=== PATIENT | male | born 1990 | race Caucasian/White ===

== ENCOUNTER 2023-10-10 08:16 | Emergency (ER) | payer OTHER, MEDICAID, SELFPAY ==
[2023-10-10] VITALS (7 sets, daily range): BP systolic 143–174; BP diastolic 77–94; PULSE 91–101; RESP 13–22; TEMP 36.2; O2SAT 92–97; BMI 35.4
--- NOTE | 2023-10-10 08:25 | DI.RAD.S_ITS ---
PROCEDURE: XR CHEST 1V INDICATIONS: eval for PNA TECHNIQUE: One view of the chest was acquired. COMPARISON: None. FINDINGS: Surgical changes and devices: None. Lungs and pleura: Lungs are clear. No pleural effusions or pneumothorax. Mediastinum: Mediastinal contours appear normal. Heart size is normal. Bones and chest wall: No suspicious bony lesions. Overlying soft tissues appear unremarkable. IMPRESSION: No acute cardiopulmonary abnormality is seen. Dictated by: Mark Styles M.D. on 10/10/2023 at 9:04 Approved by: Mark Styles M.D. on 10/10/2023 at 9:04
--- NOTE | 2023-10-10 08:38 | ED.GENADULT ---
HPI - General Adult General Chief complaint: Shortness of Breath/Dyspnea Stated complaint: SOB, Cough, diff sleeping, back pain Time Seen by Provider: 10/10/23 08:24 Source: patient Mode of arrival: Ambulatory History of Present Illness HPI narrative: Patient is a 33-year-old male. Does occasionally smoke cigarettes. Is here for evaluation of several days of coughing and shortness of breath and back discomfort because of the coughing and difficulty sleeping. Did have vomiting a couple days ago unrelated to the cough but nothing currently. No fevers. His having sinus congestion. No abdominal pain or skin rashes. Related Data Allergies Allergy/AdvReac Type Severity Reaction Status Date / Time morphine Allergy Verified 10/10/23 08:26 Sulfa (Sulfonamide Allergy Verified 10/10/23 08:26 Antibiotics) Review of Systems Constitutional Constitutional: Reports system reviewed and no additional complaints, except as documented Cardiovascular Cardiovascular: Reports system reviewed and no additional complaints, except as documented Respiratory Respiratory: Reports system reviewed and no additional complaints, except as documented Gastrointestinal Gastrointestinal: Reports system reviewed and no additional complaints, except as documented Integumentary/Breasts Skin/Breast: Reports system reviewed and no additional complaints, except as documented Neurologic Neurologic: Reports system reviewed and no additional complaints, except as documented Hematologic/Lymphatic On Anticoagulants: No Patient History Social History Smoking Status: Current some day smoker Smoking Status: Current some day smoker tobacco type: cigarettes alcohol intake frequency: 0-2 drinks per day Substance Use Type: does not use Exam Initial Vital Signs Initial Vital Signs: Vital Signs Pulse Rate 100 H 10/10/23 08:23 Pulse Oximetry 97 10/10/23 08:23 Oxygen Delivery Method Room Air 10/10/23 08:23 Const General: cooperative, comfortable and No ill appearing HENMT Head: normal to inspection and normocephalic Resp Effort & Inspection: normal respiratory effort Auscultation: clear to auscultation bilaterally Cardio Rate: regular rate GI Inspection: normal to inspection Skin General: no rashes or lesions noted Neuro General: patient alert, patient awake and moves all extremities Extrem General: capillary refill normal Course Orders Ordered: ED Orders 10/10/23 08:25 XR chest 1V Stat 10/10/23 08:28 Basic Metabolic Panel Stat Complete Blood Count AUTO DIFF Stat 10/10/23 08:30 Covid-19 + FLU A/B + RSV - PCR Stat Vital Signs Vital signs: Vital Signs - 8 hr 10/10/23 08:23 10/10/23 08:24 10/10/23 08:24 Temperature Pulse Rate 100 H 101 H Respiratory Rate 15 Blood Pressure 174/94 H Pulse Oximetry 97 96 Oxygen Delivery Method Room Air Room Air 10/10/23 08:26 10/10/23 08:30 10/10/23 08:30 Temperature 97.2 F L Pulse Rate 101 H 95 H Respiratory Rate 22 13 Blood Pressure 174/94 H 155/92 H Pulse Oximetry 97 97 Oxygen Delivery Method Room Air Nasal Cannula 10/10/23 09:00 10/10/23 09:00 10/10/23 09:30 Temperature Pulse Rate 94 H Respiratory Rate 19 Blood Pressure 153/80 H 143/77 H Pulse Oximetry 93 Oxygen Delivery Method 10/10/23 09:30 Temperature Pulse Rate 91 H Respiratory Rate 19 Blood Pressure Pulse Oximetry 92 Oxygen Delivery Method Room Air Medical Decision Making Lab Data Lab results reviewed: Yes I reviewed the patient's lab results. 10/10/23 08:28 10/10/23 08:28 Labs: Lab Results 10/10/23 10/10/23 Range/Units 08:28 08:30 WBC 9.2 (4.5-11.0) X10^3/uL RBC 4.90 (4.5-5.9) X10^6/uL Hgb 15.6 (13.5-17.5) g/dL Hct 44.4 (41-53) % MCV 90.6 (80-100) fL MCH 31.9 (26-34) PG MCHC 35.2 (30-36) % RDW 12.5 (11.6-14.8) % Plt Count 219 (150-400) X10^3/uL Neut % (Auto) 80.3 H (50-75) % Lymph % (Auto) 8.8 L (25-40) % Kerr % (Auto) 8.4 (3-14) % Eos % (Auto) 2.1 (2-4) % Baso % (Auto) 0.4 (0-2) % Neut # (Auto) 7400 H (9540-5807) /uL Lymph # (Auto) 800 L (2069-6849) /uL Kerr # (Auto) 800 (0-900) /uL Eos # (Auto) 200 (0-450) /uL Baso # (Auto) 0 (0-100) /uL Sodium 139 (137-145) mmol/L Potassium 3.5 (3.4-5.1) mmol/L Chloride 103 (98-107) mmol/L Carbon Dioxide 26 (22-32) mmol/L BUN 8 L (9-20) mg/dL Creatinine 0.71 (0.66-1.25) mg/dL Estimated GFR > 60 (>60) mL/min BUN/Creatinine Ratio 11.3 (6-22) Glucose 106 H (70-100) mg/dL Calcium 9.6 (8.4-10.2) mg/dL SARS-CoV-2 (PCR) Negative (Negative) Influenza A (RT-PCR) Flu a negative (NEGATIVE) Influenza B (RT-PCR) Flu b negative (NEGATIVE) RSV (PCR) Positive A (Negative) Imaging Data Chest x-ray: Radiologist's Impression: PROCEDURE: XR CHEST 1V INDICATIONS: eval for PNA TECHNIQUE: One view of the chest was acquired. COMPARISON: None. FINDINGS: Surgical changes and devices: None. Lungs and pleura: Lungs are clear. No pleural effusions or pneumothorax. Mediastinum: Mediastinal contours appear normal. Heart size is normal. Bones and chest wall: No suspicious bony lesions. Overlying soft tissues appear unremarkable. IMPRESSION: No acute cardiopulmonary abnormality is seen. MDM Narrative Medical decision making narrative: Patient is having a cough. X-ray shows no signs of pneumonia. Is RSV positive which does explain his symptoms. There was no indication for antibiotics. No fevers. No hypoxic. Patient was given the findings of the workup here in the emergency department. Will discharge patient home with return precautions. Discharge Plan Departure Patient Disposition: Home Clinical Impression: Respiratory syncytial virus, Cough Instructions: DI for Viral Upper Respiratory Infection -- Adult Activity Restrictions/Additional Instructions: Your workup here in the emergency department was positive for what is called RSV or respiratory syncytial virus. This is very common upper respiratory virus that your body will take care of on its own. There was no indication for any antibiotics. You can try [id number] cough and cold preparations to try to help with your cough. Contact your primary doctor for a follow-up. Return to the emergency department for new symptoms. Referrals: Miscellaneous,Doctor, MD [Primary Care Provider] - Stand Alone Forms: Patient Portal/API
[2023-10-10 08:40] LABS: Add Manual Diff / Slide Review NO; Basophils Absolute Auto 0 /uL (0-100); Basophils Percent Auto 0.4 % (0-2); Eosinophils Absolute Auto 200 /uL (0-450); Eosinophils Percent Auto 2.1 % (2-4); Hematocrit 44.4 % (41-53); Hemoglobin 15.6 g/dL (13.5-17.5); Lymphocytes Absolute Auto 800 /uL (1100-4500); Lymphocytes Percent Auto 8.8 % (25-40); Mean Corpuscular HGB Conc 35.2 % (30-36); Mean Corpuscular Hemoglobin 31.9 PG (26-34); Mean Corpuscular Volume 90.6 fL (80-100); Monocytes Absolute Auto 800 /uL (0-900); Monocytes Percent Auto 8.4 % (3-14); Neutrophils Absolute Auto 7400 /uL (1500-7000); Neutrophils Percent Auto 80.3 % (50-75); Platelet Count 219 X10^3/uL (150-400); Red Cell Distribution Width 12.5 % (11.6-14.8); White Blood Cell Count 9.2 X10^3/uL (4.5-11.0)
[2023-10-10 08:51] LABS: BUN Creatinine Ratio 11.3 (6-22); Blood Urea Nitrogen 8 mg/dL (9-20); Calcium 9.6 mg/dL (8.4-10.2); Carbon Dioxide 26 mmol/L (22-32); Chloride 103 mmol/L (98-107); Estimated Glomerular Filt Rate > 60 mL/min (>60); Glucose 106 mg/dL (70-100); HEMOLYSIS < 15 (0-50); Potassium 3.5 mmol/L (3.4-5.1); Sodium 139 mmol/L (137-145)
[2023-10-10 09:19] LABS: Influenza A - CEPHEID Flu A NEGATIVE (NEGATIVE); Influenza B - CEPHEID Flu B NEGATIVE (NEGATIVE)
[2023-10-10 09:23] LABS: COVID-19 CEPHEID 4-PLEX PCR Negative (Negative); Respiratory Syncytial Virus POSITIVE (Negative)
== END 2023-10-10 10:03 | disposition home or self-care (01) ==
PROVIDERS: Emergency Provider Emergency Medicine
DX: R05.9 Cough, unspecified (principal); B97.4 Respiratory syncytial virus as the cause of diseases classified elsewhere
CPT/HCPCS: 0241U; 36415; 71045; 80048; 85025; 99284

== ENCOUNTER 2025-09-18 01:53 | Emergency (ER) | payer SELFPAY ==
[2025-09-18] VITALS (8 sets, daily range): BP systolic 130–174; BP diastolic 77–118; PULSE 66–76; RESP 18–26; TEMP 35.9; O2SAT 95–100; BMI 35.7
[2025-09-18] MEDS: ALBUTEROL/IPRATROPIUM 3 ML AMPUL INH ×2 (02:21→03:13)
--- NOTE | 2025-09-18 03:02 | PC.NURSE ---
Pt states he is feeling better but feels another neb treatment will help. Spoke with Dr. Kerr and ok'd, RT made aware.
--- NOTE | 2025-09-18 03:07 | ED_ITS ---
HPI - Asthma General Chief Complaint: Asthma Stated Complaint: SOB, Asthma flare up Time Seen by Provider: 09/18/25 02:15 Source: patient Mode of arrival: Ambulatory History of Present Illness HPI Narrative: 35-year-old male with known asthma presents with more shortness of breath throughout the day. Patient has no insurance or money to be able to afford an inhaler and has to use an [id number] inhaler but has not been very effect kendall. No other symptoms. Related Data Previous Rx's ?Medication ?Instructions ?Recorded albuterol sulfate 90 mcg/actuation 2 puff inhalation Q 6H PRN 09/18/25 aerosol inhaler shortness of breath or wheez ing #8.5 grams fluticasone propionate 110 2 puff inhalation BID #12 g ivory 09/18/25 mcg/actuation HFA aerosol inhaler prednisone 20 mg tablet 40 mg (2 x 20 mg) PO DAILY # 10 tabs 09/18/25 Allergies Allergy/AdvReac Type Severity Reaction Status Date / Time morphine Allergy Verified 09/18/25 02:13 Sulfa (Sulfonamide Allergy Verified 09/18/25 02:13 Antibiotics) Review of Systems Review of Systems ROS Unobtainable: All systems reviewed & are unremarkable except as noted in HPI and below Patient History Smoking Status: Former smoker tobacco type: cigarettes alcohol intake frequency: 0-2 drinks per day Exam Narrative Exam Narrative: General: Patient appears to be in no acute distress, acting appropriately Head: normocephalic, atraumatic, HEENT: Pupils equal round reactive, eyes tracking well, neck supple, no JVD Heart: regular rate and rhythm, no murmurs, rubs, or gallops heard Lungs: Bilateral wheezing Abdomen: soft , nontender, nondistended, positive bowel sounds Neurological: no focal neurological signs, moving all extremities well, alert and oriented x3, Psych: good judgment ,good insight, mood is normal. Initial Vital Signs Initial Vital Signs: Vital Signs Temperature 96.7 F L 09/18/25 02:13 Pulse Rate 72 09/18/25 02:13 Respiratory Rate 20 09/18/25 02:13 Blood Pressure 174/118 H 09/18/25 02:13 Pulse Oximetry 100 09/18/25 02:13 Oxygen Delivery Method Room Air 09/18/25 02:13 Course Orders Ordered: Discontinued Medications Albuterol (Albuterol 2.5 Mg/3 Ml Neb (Adult)) 2.5 mg INH NOW ONE Stop: 09/18/25 02:17 Albuterol (Albuterol Hfa Prepack) 1 box MISC DIRECTED ONE Stop: 09/18/25 03:44 Last Admin: 09/18/25 03:58 Dose: 1 box Albuterol/Ipratropium (Albuterol/Ipratropium 3 Ml Ampul) 3 ml INH NOW ONE Stop: 09/18/25 02:18 Last Admin: 09/18/25 02:21 Dose: 3 ml Documented By: PV Albuterol/Ipratropium (Albuterol/Ipratropium 3 Ml Ampul) 3 ml INH NOW ONE Stop: 09/18/25 02:33 Last Admin: 09/18/25 03:13 Dose: 3 ml Dexamethasone (Dexamethasone 10 Mg/Ml Vial) 10 mg IM NOW ONE Stop: 09/18/25 02:21 Last Admin: 09/18/25 02:29 Dose: 10 mg Documented By: LS Vital Signs Vital signs: Vital Signs - 8 hr 09/18/25 02:13 09/18/25 02:23 09/18/25 02:32 Temperature 96.7 F L Pulse Rate 72 69 71 Respiratory Rate 20 20 Blood Pressure 174/118 H Pulse Oximetry 100 97 97 Oxygen Delivery Method Room Air Room Air Fraction of Inspired Oxygen 09/18/25 02:33 09/18/25 02:33 09/18/25 03:00 Temperature Pulse Rate 68 Respiratory Rate 26 H Blood Pressure 151/86 H 139/87 Pulse Oximetry 95 Oxygen Delivery Method Room Air Fraction of Inspired Oxygen 09/18/25 03:00 09/18/25 03:15 09/18/25 03:30 Temperature Pulse Rate 70 76 Respiratory Rate 20 20 Blood Pressure 136/77 Pulse Oximetry 96 97 Oxygen Delivery Method Room Air Room Air Fraction of Inspired Oxygen 09/18/25 03:30 09/18/25 04:00 09/18/25 04:00 Temperature Pulse Rate 67 66 Respiratory Rate 20 18 Blood Pressure 130/81 Pulse Oximetry 97 97 Oxygen Delivery Method Room Air Room Air Fraction of Inspired Oxygen MDM - Asthma MDM Narrative Medical decision making narrative: 35-year-old male with history of asthma presents with an exacerbation of his asthma. His symptoms improved dramatically with 2 DuoNeb treatments as well as dexamethasone. Upon discharge he was given a take-home albuterol inhaler and prescribed another albuterol inhaler as well as a maintenance Flovent inhaler and prednisone. Advised to follow up if symptoms worsen. Discharge Plan Departure Patient Disposition: Home Clinical Impression: Asthma with acute exacerbation Qualifiers: Asthma severity: moderate Asthma persistence: unspecified Qualified Code(s): J45.901 - Unspecified asthma with (acute) exacerbation Instructions: DI for Asthma -- Adult Activity Restrictions/Additional Instructions: Use albuterol as needed. Use other maintenance inhaler daily as prescribed regardless of how you feel. Take prednisone as prescribed. Follow up if symptoms worsen. Follow up with PCP as soon as possible. Prescriptions: New albuterol sulfate 90 mcg/actuation HFA aerosol inhaler 2 puff inhalation Q6H PRN (Reason: shortness of breath or wheezing) Qty: 8.5 0RF prednisone 20 mg tablet 40 mg PO DAILY Qty: 10 0RF fluticasone propionate 110 mcg/actuation HFA aerosol inhaler 2 puff inhalation BID Qty: 12 0RF Referrals: Miscellaneous,Doctor, MD [Primary Care Provider, Medical] Stand Alone Forms: Patient Portal/API
[2025-09-18] MEDS: ALBUTEROL HFA PREPACK 1 BOX MISC (03:58)
== END 2025-09-18 04:07 | disposition home or self-care (01) ==
PROVIDERS: Emergency Provider Family Medicine
DX: J45.901 Unspecified asthma with (acute) exacerbation (principal)
CPT/HCPCS: 94640; 96372; 99283; J1100